=== PATIENT | male | born 1965 | race Caucasian/White ===

== ENCOUNTER → 2024-08-30 12:53 | Outpatient (REF) | payer OTHER, SELFPAY | LOC: HWRAD 12:53 | PROVIDERS: ATTENDING PHYSICIAN Internal Medicine Endocrinology, Diabetes & Metabolism; FAMILY PHYSICIAN Family Medicine | DX: Z85.850 Personal history of malignant neoplasm of thyroid (principal) | CPT/HCPCS: 76536 ==